=== PATIENT | male | born 1995 | race Caucasian/White ===

== ENCOUNTER 2017-05-16 19:57 | Emergency (ER) | payer BC ==
[~2017-05-16] VITALS: Ht 177.8 cm; Wt 88.5 kg
== END 2017-05-16 21:33 | disposition home or self-care (01) ==
LOC: SED 19:57
DX: S61.011A Laceration without foreign body of right thumb without damage to nail, initial encounter (principal); F17.200 Nicotine dependence, unspecified, uncomplicated; Z23 Encounter for immunization; X58.XXXA Exposure to other specified factors, initial encounter; Y92.009 Unspecified place in unspecified non-institutional (private) residence as the place of occurrence of the external cause
CPT/HCPCS: 12001; 90471; 90715; 99283